=== PATIENT | male | born 1980 | race Caucasian/White ===

== ENCOUNTER → 2020-08-22 11:52 | Outpatient (BNVA) | payer SELFPAY | PROVIDERS: PCP Registered Nurse; Visit Provider Emergency Medicine | DX: D45 Polycythemia vera (principal); M25.569 Pain in unspecified knee | CPT/HCPCS: 80053; 83880; 85025; 85610 ==

== ENCOUNTER 2020-10-07 17:00 | Emergency (ER) | payer SELFPAY ==
[2020-10-07 17:03] VITALS: BP 132/78; PULSE 101; RESP 18; TEMP 36.8; O2SAT 97; BMI 20.7
[2020-10-07 17:10] VITALS: BP 130/83; PULSE 101; O2SAT 97
--- NOTE | 2020-10-07 17:22 | CTR_ITS ---
PROCEDURE INFORMATION: Exam: CT Head Without Contrast Exam date and time: 10/07/2020 5:29 PM Age: 40 years old Clinical indication: Pain; Headache TECHNIQUE: Imaging protocol: Computed tomography of the head without contrast. Total images: 190 Radiation optimization: All CT scans at this facility use at least one of these dose optimization techniques: automated exposure control; mA and/or kV adjustment per patient size (includes targeted exams where dose is matched to clinical indication); or iterative reconstruction. COMPARISON: CT head wo con* [id number] 01/05/2019 12:12 AM RADIATION DOSE METRICS: Total DLP (mGy-cm): 742 FINDINGS: Brain: Normal. No hemorrhage. Unremarkable white matter. No mass effect. Cerebral ventricles: No ventriculomegaly. Bones/joints: Unremarkable. No acute fracture. Paranasal sinuses: Evidence of mild chronic ethmoid sinusitis. No visible evidence of active paranasal sinus disease. Mastoid air cells: Visualized mastoid air cells are well aerated. Soft tissues: Unremarkable. CT/CT head wo con* [id number] IMPRESSION: No evidence of active or acute intracranial pathologic process, hemorrhage, or trauma. Radiation Dose CTDIVOL = (mGy): DLP = 742 (mGy-cm)
--- NOTE | 2020-10-07 17:22 | USCV_ITS ---
[place] Age: 40 Gender: M : 1980 Exam Date: 10/07/2020 18:00 Ordering Phys: Tamika Mancilla Technologist: Yumiko Dwyer [place] [facility] [place] Indication: SWELLING HISTORY: Lower extremity swelling. PROCEDURES: Venous duplex imaging was performed in only the right lower extremity. The following venous structures were evaluated: common femoral vein, profunda vein, proximal portion of the greater saphenous vein, superficial femoral vein, and the popliteal vein. In addition, the posterior tibial and peroneal trunk were evaluated. Serial compression, augmentation maneuvers, and spectral Doppler flow evaluation were performed. FINDINGS: Normal 2-D Doppler and augmentation and compressibility throughout the lower extremity venous structures. Additional imaging through the proximal calf veins also reveals no thrombus. Limited evaluation of the greater saphenous vein is patent with no thrombus.. CONCLUSIONS No evidence of DVT in the above-mentioned identifiable veins. Dr Rush Schafer MD [facility] (Electronically Signed) Final Date: 07 October 2020 19:42 S
--- NOTE | 2020-10-07 17:22 | CTR_ITS ---
PROCEDURE INFORMATION: Exam: CT Angiography Chest With Contrast Exam date and time: 10/07/2020 5:29 PM Age: 40 years old Clinical indication: Patient HX: Sub sternal chest pain x 2 days; Additional info: Cp, ? pe, elevated d-dimer TECHNIQUE: Imaging protocol: Computed tomographic angiography of the chest with contrast. 3D rendering (Not supervised by radiologist): MIP and/or 3D reconstructed images were created by the technologist. Total images: 859 Radiation optimization: All CT scans at this facility use at least one of these dose optimization techniques: automated exposure control; mA and/or kV adjustment per patient size (includes targeted exams where dose is matched to clinical indication); or iterative reconstruction. Contrast material: OMNI 350; Contrast volume: 63 ml; Contrast route: INTRAVENOUS (IV); COMPARISON: CR Chest 1 [place] [id number] 01/04/2019 11:48 PM RADIATION DOSE METRICS: Total DLP (mGy-cm): 545.78 FINDINGS: Pulmonary arteries: No visible evidence of pulmonary embolism/pulmonary arterial thrombus. Aorta: The thoracic aorta is nonaneurysmal. No visible intimal flap or dissection. Lungs: No visible active interstitial or alveolar airspace disease. No visible evidence of significant restrictive or reactive airway disease. Pleural spaces: Unremarkable. No pneumothorax. No pleural effusion. Heart: Unremarkable. No cardiomegaly. No pericardial effusion. Lymph nodes: No visible active mediastinal or hilar lymphadenopathy. Calcified complexes of antecedent granulomatous disease. Liver: Tiny hepatic cyst dome of the right hepatic lobe. Spleen: Tiny splenule. Spleen otherwise unremarkable. Bones/joints: No visible active or acute osseous pathology. Soft tissues: Unremarkable. Soft tissues: Unremarkable. CT/CT angio chest PE protcl [id number] IMPRESSION: No visible evidence of pulmonary embolism/pulmonary arterial thrombus. Radiation Dose CTDIVOL = (mGy): DLP = 545.78 (mGy-cm)
--- NOTE | 2020-10-07 17:22 | USCV_ITS ---
[place] Age: 40 Gender: M : 1980 Exam Date: 10/07/2020 18:04 Ordering Phys: Tamika Mancilla Technologist: Yumiko Dwyer Exam Location: [facility] [place] Indication: SWELLING HISTORY: Upper extremity swelling. PROCEDURES: Venous duplex imaging was performed in only the right upper extremity. The following venous structures were evaluated: internal jugular vein, subclavian vein, axillary vein, and brachial veins. In addition, the basilic vein, cephalic vein, radial vein, and ulnar vein. Serial compression, augmentation maneuvers, and spectral Doppler flow evaluation were performed. FINDINGS: Normal 2-D, color Doppler and phasicity noted in ther right upper extremity venous system extending from the right internal jugular vein through the main forearm. No thrombosis or occlusion noted. The veins were found to be easily compressible with spontaneous blood flow. Non pulsatile flow pattern. CONCLUSIONS No evidence of venous thrombosis, based on the above findings Dr Rush Schafer MD [facility] (Electronically Signed) Final Date: 07 October 2020 19:40 S
--- NOTE | 2020-10-07 17:25 | ECG_ITS ---
[facility] Test Date: 2020-10-07 Pat Name: [place] Department: Room: Gender: Male [employer] Attendant: : 1980 Requested By: Tamika Mccallum Order Number: [id number] Karla MD: Miguel Angel Casey M.D. Measurements Intervals [place] Rate: 89 P: 57 NM: 153 QRS: 40 QRSD: 100 T: 50 QT: 328 QTc: 400 Interpretive Statements SINUS RHYTHM Compared to ECG 01/05/2019 00:00:37 No significant changes Electronically Signed On 10-08-2020 11:07:52 [employer] MANAGER by Miguel Angle Casey M.D. [id number]
--- NOTE | 2020-10-07 17:26 | ED_ITS ---
HPI - General Adult General: Chief complaint: General Medical Stated complaint: suspects blood clot in lung/head Time Seen by Provider: 10/07/20 17:08 Source: patient and family (sister) Mode of arrival: ambulatory Limitations: no limitations History of Present Illness: HPI narrative: Pleasant 40-year-old male patient presents to the emergency department for further evaluation from another facility, [place]. He arrived to [facility] today with complaints of chest pain on and off x2 days, located in the center of his chest. He reports pain comes and goes. He states nothing makes it better nothing makes it worse. He describes pain as dull ache in the center of his chest, he has history of atrial fibrillation and polycythemia remains on aspirin as med ication/anti-coagulation; he does not know names of daily medication; he reports noncompliance and has not followed up with cardiology as recommended by his primary care physician. He also complains of right lower extremity redness and swelling x3 days with new onset of right upper extremity, right arm area of redness that is new today. He reports areas of redness and swelling/tenderness, worse with movement. Also complains of a headache x3 days, occipital, has not taken anything for pain. He denies history of chronic headaches or migraine. is afraid he may have a blood clot in his chest and brain, right leg and right arm as his D-dimer readings were elevated at [place] which is why he was sent here for further evaluation. D-dimer was 0.74. He denies facial weakness, extremity weakness, leg or arm weakness. He denies nausea vomiting diarrhea or radiation of chest pain into the arms or neck. He currently denies chest pain upon exam. States has been pain-free in the chest since leaving [place]. Location: head, chest, upper extremity and lower extremity Radiation: non-radiation Severity: moderate Quality: dull Pain Consistency: intermittent Relieving factors: rest Exacerbating factors: movement Associated symptoms: Reports chest pain, headache(s) and palpitations (history of atrial fibrillation); Deny confusion, diaphoresis, dyspnea, nausea, rash or vomiting Treatments prior to arrival: none Review of Systems General: Reports: 10 or more systems reviewed and unremarkable except in HPI and below Const: Denies: fever(s), chills or diaphoresis Eyes: Denies: change in vision, blurry vision, photophobia, eye discomfort, eye redness or yellow eyes ENMT: Denies: throat pain, hoarseness, mouth pain, dental pain, ear or mastoid pain, disequilibrium, nasal discharge, nasal congestion or post nasal drip Card: Reports: chest pain, palpitations (history of atrial fibrillation) and edema (RLE); Denies: swelling of feet/ankles, lightheadedness, dyspnea on exertion or orthopnea Resp: Denies: dyspnea, productive cough, non-productive cough, wheezing or chest congestion GI: Denies: abdominal pain, nausea, vomiting, hematemesis, diarrhea, constipation, GI cramping, change in stool character or melena : Denies: dysuria Musc: Reports: extremity pain (RLE and RUE) and extremity swelling (RLE); Denies: neck pain, back pain, muscle cramps or muscle weakness Skin/Breast: Denies: rash or pruritus Neuro: Reports: headache(s); Denies: numbness in extremities, weakness in extremities, sensory changes, difficulty walking, frequent falls, confusion, behavioral changes, Slurred speech present, difficulty communicating thoughts or seizure-like activity Psych: Denies: anxiety, depression, hopelessness or irritability Adrián/Lymph: Denies: easy bruising PFS ED PFSH: Medical History (Updated 10/07/20 @ 19:16 by LYDIA Argueta) Atrial fibrillation CVA (cerebral vascular accident) Polycythemia vera Social History Smoking and tobacco status: current every day smoker Alcohol intake: never Physical Exam Const: COMMON NORMALS: no acute distress, patient oriented x3, healthy appearing, alert and well nourished EXAM LIMITATIONS: no altered mental status and no physical limitations GENERAL APPEARANCE: cooperative, comfortable, well kempt, well developed and well hydrated; not anxious, not combative, not lethargic and not ill appearing NUTRITIONAL APPEARANCE: thin ORIENTATION/CONSCIOUSNESS: Yes awake, Yes oriented to person, Yes oriented to place and Yes oriented to time; not lethargic HENMT: COMMON NORMALS: normocephalic, atraumatic, EAC's normal, Normal external nose present and moist oral mucous membranes HEAD & SCALP: normal to inspection, normocephalic, atraumatic and scalp tenderness (Occipital) FACE & SINUS: normal facial exam, sinuses nontender and face symmetric NOSE: Normal external nose present and Normal nares present EXTERNAL AUDITORY CANAL: EAC's normal MOUTH: Normal oral and palatal mucosa present, lip normal and tongue normal THROAT: posterior oropharynx normal and uvula midline Eye: COMMON NORMALS: Equal, round and reactive pupils present, EOMs intact bilaterally and conjunctivae normal GENERAL EYE: appearance normal, both eyes and all related structures and normal light reflex ALIGNMENT: Yes alignment normal EYELID: eyelids normal CONJUNCTIVA: Yes conjunctivae normal SCLERA: sclerae normal PUPIL: Yes Equal, round and reactive pupils present, Yes pupil size - right Right pupil size (mm): 4 and Yes pupil size - left Left pupil size (mm): 4 DIRECT OPHTHALMOSCOPY: Yes normal light reflex Neck/C-Spine: COMMON NORMALS: full ROM, no lymphadenopathy, supple, no meningeal signs and no JVD GENERAL: Yes normal visual inspection and Yes trachea midline CERVICAL SPINE: Yes cervical ROM normal, No Cervical spine tenderness, No Paracervical muscle tenderness and No Trapezius muscle tenderness Lymph: LYMPHATIC: no lymphadenopathy noted Chest: COMMONS NORMALS: normal inspection of the chest and normal palpation of entire chest wall CHEST: No localized rib tenderness with anteroposterior compression Resp: COMMON NORMALS: normal respiratory effort, No retractions, No use of accessory muscles and clear to auscultation bilaterally EFFORT & INSPECTION: Yes able to speak in complete sentences, No labored, No Actively coughing, No retractions and No audible wheezes AUSCULTATION: clear to auscultation bilaterally Cardio: COMMON NORMALS: no JVD, regular rate, regular rhythm, S1 normal heart sound present, S2 normal heart sound present and Peripheral pulses 2+ throughout PALPATION: normal PMI RATE: regular rate RHYTHM: regular rhythm HEART SOUNDS: S1 normal heart sound present and S2 normal heart sound present PERIPHERAL PULSES: Peripheral pulses 2+ throughout GI: COMMON NORMALS: Normal to inspection, nondistended, normoactive bowel sounds present, Soft to palpation and non-tender INSPECTION: Yes normal to inspection, No abdominal wall ecchymosis, No Anasarca and No central obesity PALPATION: Yes Soft to palpation : COMMON NORMALS: Yes no CVA tenderness BLADDER/KIDNEY EXAM: Yes no CVA tenderness Back/Pelvis: COMMON NORMALS: no CVA tenderness and thoracic and lumbar spine normal to inspection THORACIC SPINE/UPPER BACK: Yes thoracic ROM normal LUMBAR SPINE/LOWER BACK: Yes lumbar ROM normal Extremity: COMMON NORMALS: full ROM, capillary refill normal, no clubbing, cyanosis or edema and no pedal edema GENERAL: Yes normal exam except as noted OTHER: RLE with calf tenderness and slight erythema; RUE with area of erythema lower arm, dorsal with tenderness Neuro: HAYLEY COMA SCALE: document GCS findings Mcintosh coma scale eye opening: Spontaneous Hayley coma scale verbal response: Orientated Mcintosh coma scale motor response: Obey commands Hayley coma scale total score: 15 COMMON NORMALS: patient oriented x3, moves all extremities and no focal motor deficits SENSORIUM/ORIENTATION: Yes alert, Yes oriented to person, Yes oriented to place, Yes oriented to time, No Orientation impaired and No lethargic MENINGEAL SIGNS: Yes no meningeal signs, No nuccal rigidity, No Brudzinski's sign present and No Kernig's sign presnet CRANIAL NERVES: Yes CN normal except as noted and Yes pupillary reactivity/size COORDINATION/BALANCE: [id number] test normal and [id number]-al-[id number] test normal SPEECH: speech normal GAIT: Yes Normal gait present SENSORY EXAM: Yes Normal double simultaneous stimulation for sensation MOTOR EXAM: 5/5 motor strength present throughout, Pronator motor function not present, no tremor noted, Normal motor muscle tone present throughout and Motor abnormalities not present COORDINATION: fin corinne-to-nose test normal and [id number] test normal PUPIL EXAM: Normal pupillary reactivity/response: right and left Right pupil size (mm): 4 Left pupil size (mm): 4 Psych: COMMON NORMALS: mental status grossly normal, Normal thought process present and cooperative APPEARANCE: Yes well kempt ACTIVITY/MOTOR BEHAVIOR: Yes appropriate eye contact THOUGHT PROCESS: Normal thought process present Skin: COMMON NORMALS: turgor normal, no jaundice, no petechiae and no mottling GENERAL SKIN EXAM: turgor normal LESIONS: lesion noted (Early abscess left lateral neck, papule, 8 mm x 8 mm with slight induration) HAIR: normal NAILS: normal Course Vital Signs: Vital signs: Vital Signs Temperature 98.2 F 10/07/20 17:03 Pulse Rate 82 10/07/20 19:38 Respiratory Rate 16 10/07/20 19:38 Blood Pressure 115/80 10/07/20 19:38 Pulse Oximetry 97 10/07/20 19:38 MDM - General Adult MDM Narrative: Medical decision making narrative: 40-year-old male patient presents to the emergency department for further evaluation studies for possible DVT of the right upper and lower extremities due to redness and swelling. He is a transfer from [facility] in [place], D-dimer was noted to be slightly elevated, 0.74. Due to his complaint of chest pain x3 days with history of atrial fibrillation and polycythemia, ECG and CTA PE protocol chest completed. ECG did not reveal S1 Q3 T3 or ST elevation variances, was with normal reading. CTA PE chest protocol did not reveal occlusion or PE/infectious process. NIH scale 0. CTA of the brain not completed due to negative findings of right upper and lower extremity venous Doppler and CTA PE protocol chest. Tylenol was administered as he complained of headache, CT of the head without contrast was negative for stroke or ischemia. Tylenol effective resolving headache. Findings of the redness to the upper and lower extremities on the right sugge stive of cellulitis and skin thickening was present over the areas. We will treat for cellulitis and recommend follow-up with his primary care provider. Continue aspirin and other daily medication recommended. Troponin was also noted to be 6, negative for elevation. Patient reports no history of MRSA, findings of left papule possible early abscess, was placed on Bactrim. Consult to secondary social studies teacher to assist with scheduling patient follow-up appointment with his primary care provider next week for follow-up. He denies further chest pain here in the ED at the end of his exam. Lab Data: Labs: Lab Results 10/07/20 10/07/20 Range/Units 17:15 17:15 PT 12.40 (12.1-14.9) SECO NDS INR 0.90 (0.8-1.2) APTT 33.1 (23.9-36.7) SECO NDS Troponin T Gen 5 n g/L 6 (0-15) ng/L Imaging Data^: CT Head: Radiologist's impression: [address] [address] [address] Scan Report Signed Patient: [place] #: [id number] : 1980Acct#:[id number] Age/Sex: 40 / MADM Date: 10/07/20 Loc: ERRoom/Bed: Attending Dr: Ordering Provider/Ordering MD: Tamika Mancilla Date of Service: 10/07/20 Procedure(s): CT head wo con* [id number] Accession Number(s): [id number] Report Number: [id number] PROCEDURE INFORMATION: Exam: CT Head Without Contrast Exam date and time: 10/07/2020 5:29 PM Age: 40 years old Clinical indication: Pain; Headache TECHNIQUE: Imaging protocol: Computed tomography of the head without contrast. Total images: 190 Radiation optimization: All CT scans at this facility use at least one of these dose optimization techniques: automated exposure control; mA and/or kV adjustment per patient size (includes targeted exams where dose is matched to clinical indication); or iterative reconstruction. COMPARISON: CT head wo con* [id number] 01/05/2019 12:12 AM RADIATION DOSE METRICS: Total DLP (mGy-cm): 742 FINDINGS: Brain: Normal. No hemorrhage. Unremarkable white matter. No mass effect. Cerebral ventricles: No ventriculomegaly. Bones/joints: Unremarkable. No acute fracture. Paranasal sinuses: Evidence of mild chronic ethmoid sinusitis. No visible evidence of active paranasal sinus disease. Mastoid air cells: Visualized mastoid air cells are well aerated. Soft tissues: Unremarkable. CT/CT head wo con* [id number] IMPRESSION: No evidence of active or acute intracranial pathologic process, hemorrhage, or trauma. Radiation Dose CTDIVOL = (mGy): DLP = 742 (mGy-cm) Dictated By:Xavi Baum Signed By:Jeremy Baum Date/Time:10/07/201807 DD/ [address]: Radiologist's impression: [facility] [address] [place] [address] CT Scan Report Signed Patient: [place] Unit #: [id number] : 1980 Age/Sex: 40 / M ADM Date: 10/07/20 Loc: ER Room/Bed: Attending Dr: Ordering Provider/Ordering MD: Tamika Mancilla Date of Service: 10/07/20 Procedure(s): CT angio chest PE protcl [id number] Accession Number(s): [id number] Report Number: [id number] PROCEDURE INFORMATION: Exam: CT Angiography Chest With Contrast Exam date and time: 10/07/2020 5:29 PM Age: 40 years old Clinical indication: Patient HX: Sub sternal chest pain x 2 days; Additional info: Cp, ? pe, elevated d-dimer TECHNIQUE: Imaging protocol: Computed tomographic angiography of the chest with contrast. 3D rendering (Not supervised by radiologist): MIP and/or 3D reconstructed images were created by the technologist. Total images: 859 Radiation optimization: All CT scans at this facility use at least one of these dose optimization techniques: automated exposure control; mA and/or kV adjustment per patient size (includes targeted exams where dose is matched to clinical indication); or iterative reconstruction. Contrast material: OMNI 350; Contrast volume: 63 ml; Contrast route: INTRAVENOUS (IV); COMPARISON: CR Chest 1 [place] [id number] 01/04/2019 11:48 PM RADIATION DOSE METRICS: Total DLP (mGy-cm): 545.78 FINDINGS: Pulmonary arteries: No visible evidence of pulmonary embolism/pulmonary arterial thrombus. Aorta: The thoracic aorta is nonaneurysmal. No visible intimal flap or dissection. Lungs: No visible active interstitial or alveolar airspace disease. No visible evidence of significant restrictive or reactive airway disease. Pleural spaces: Unremarkable. No pneumothorax. No pleural effusion. Heart: Unremarkable. No cardiomegaly. No pericardial effusion. Lymph nodes: No visible active mediastinal or hilar lymphadenopathy. Calcified complexes of antecedent granulomatous disease. Liver: Tiny hepatic cyst dome of the right hepatic lobe. Spleen: Tiny splenule. Spleen otherwise unremarkable. Bones/joints: No visible active or acute osseous pathology. Soft tissues: Unremarkable. Soft tissues: Unremarkable. CT/CT angio chest PE protcl [id number] IMPRESSION: No visible evidence of pulmonary embolism/pulmonary arterial thrombus. Radiation Dose CTDIVOL = (mGy): DLP = 545.78 (mGy-cm) Dictated By: Xavi Baum Signed By: Xavi Baum Signed Date/Time: 10/07/201816 DD/ 14 US: Radiologist's impression: Duplex venous Doppler right lower extremity and right upper extremity without DVT or occlusion. EKG Data^: EKG 1: EKG interpretation date: 10/07/20 EKG interpretation time: 17:44 Prior EKG tracings: not available for review Computer generated interpretation: Chest CTA 10/07/20 17:22 IMPRESSION: No visible evidence of pulmonary embolism/pulmonary arterial thrombus. Radiation Dose CTDIVOL = (mGy): DLP = 545.78 (mGy-cm) Head CT 10/07/20 17:22 IMPRESSION: No evidence of active or acute intracranial pathologic process, hemorrhage, or trauma. Radiation Dose CTDIVOL = (mGy): DLP = 742 (mGy-cm) Other EKG comments: Ventricular rate 89; sinus rhythm, normal ECG Discharge Plan Discharge Patient Disposition: Home Clinical Impression: Headache Qualifiers: Headache type: unspecified Headache chronicity pattern: unspecified pattern Intractability: intractable Qualified Code(s): R51.9 - Headache, unspecified Cellulitis Qualifiers: Site of cellulitis: extremity Site of cellulitis of extremity: lower extremity Laterality: right Qualified Code(s): L03.115 - Cellulitis of right lower limb Chest pain Qualifiers: Chest pain type: other chest pain Qualified Code(s): R07.89 - Other chest pain Condition: Stable Prescriptions: New Bactrim DS 800-160 mg tablet 1 tab PO BID 20 Days Qty: 40 RF: 0 No Action aspirin [Adult Aspirin Regimen] 81 mg tablet,delayed release (DR/EC) 81 mg PO DAILY Qty: 30 RF: 4 hydroxyurea 500 mg capsule 500 mg PO DAILY Qty: 30 RF: 3 Discharge Orders: Discharge ED (Routine); Ordered 10/07/20 Ordered By: Tamika Mancilla Referrals: Mirta Ignacio FNP [Primary Care Provider] - Discharge Diet: Usual diet Discharge Activity: Resume usual activity Patient Instructions: Chest Pain (ED), Methicillin Resistant Staphylococcus Aureus (ED), Cellulitis (ED), Acute Headache (ED) Activity Restrictions/Additional Instructions: Take Bactrim until all gone, even if feeling better Return to the emergency department if you develop worsening symptoms such as shortness of breath, the worst headache of your life or other concerning symptoms Drink lots of water to remain hydrated Case management will contact you with a follow-up appointment with Dr. Carbajal for next week. Continue current medications Coding Level of Care Code ED Learning Disabilities Specialist for Chg Fwd Exam Comprehensive
[2020-10-07] MEDS: acetaminophen 500 mg Tablet 1000 MG PO (17:39)
[2020-10-07 17:52] LABS: Partial Thromboplastin Time 33.1 SECONDS (23.9-36.7)
[2020-10-07] MEDS: iohexol 350 mg/mL 100 mL Btl IV (17:54)
[2020-10-07 18:27] VITALS: BP 111/70; PULSE 89; O2SAT 96
[2020-10-07 18:40] LABS: Troponin T (5th) Once 6 ng/L (0-15)
[2020-10-07 19:18] VITALS: BP 103/88; PULSE 88; O2SAT 96
[2020-10-07 19:38] VITALS: BP 115/80; PULSE 82; RESP 16; O2SAT 97
--- NOTE | 2020-10-11 12:23 | DCPLANNER ---
manager human resources received message to schedule follow up appointment with Dr. Adan. manager human resources called patient and patient stated that he has already had his follow up appointment with Dr. Adan. Patient stated the appointment was yesterday.
== END 2020-10-07 19:40 | disposition home or self-care (01) ==
PROVIDERS: Emergency Provider Nurse Practitioner Family; PCP Registered Nurse
DX: R07.89 Other chest pain (principal); R51.9 Headache, unspecified; L03.115 Cellulitis of right lower limb; Z79.82 Long term (current) use of aspirin; I48.91 Unspecified atrial fibrillation; Z86.73 Personal history of transient ischemic attack (TIA), and cerebral infarction without residual deficits; F17.210 Nicotine dependence, cigarettes, uncomplicated
CPT/HCPCS: 12345; 70450; 71275; 84484; 85610; 85730; 87070; 87075; 87205; 93005; 93971; 99283; 99284; Q9967

== ENCOUNTER 2022-07-28 13:09 | Emergency (ER) | payer SELFPAY ==
[2022-07-28 13:26] VITALS: BP 128/67; PULSE 115; RESP 18; TEMP 38.3; O2SAT 94
--- NOTE | 2022-07-28 13:49 | XRR_ITS ---
PROCEDURE INFORMATION: Exam: XR Chest Exam date and time: 07/28/2022 3:10 PM Age: 42 years old Clinical indication: Cough and dyspnea; Additional info: Dyspnea/cough TECHNIQUE: Imaging protocol: Radiologic exam of the chest. Views: 1 view. COMPARISON: CT angio chest PE prot [id number] 10/07/2020 5:45 PM FINDINGS: Lungs: Unremarkable. No consolidation. Pleural spaces: Unremarkable. No pleural effusion. No pneumothorax. Heart/Mediastinum: Unremarkable. No cardiomegaly. Bones/joints: Unremarkable. XR/XR chest 1V portable [id number] IMPRESSION: No acute findings.
--- NOTE | 2022-07-28 13:56 | W.ED.GENADLT ---
HPI - General Adult General: Chief complaint: General Medical Stated complaint: R leg issue Time Seen by Provider: 07/28/22 13:48 Source: patient Mode of arrival: ambulatory History of Present Illness: 42-year-old male presents to the emergency room complaining of generally not feeling well. He has a low-grade fever some tachycardia initially started with diarrhea that resolved he has a lot of myalgias rhinorrhea and some mild sore throat. He reports a rash on his right leg that is very sparse that has been present intermittently for the last 2 months. No vesicular vesicles no drainage no significant erythema no fevers sweats or chills prior to the onset of the diarrhea and myalgias here recently. He is concerned that this is all associated with the rash. Onset (ago): day(s) Severity: moderate Pain Consistency: constant Relieving factors: none Exacerbating factors: none Associated symptoms: Reports cough, decreased appetite, dyspnea, fevers/chills, headache(s), malaise, nausea, rash and short of breath; Deny chest pain, confusion, diaphoresis, palpitations, seizures, syncope or weakness Treatments prior to arrival: none Review of Systems Const: Reports: fever(s), chills, body aches, fatigue and malaise; Denies: diaphoresis ENMT: Denies: throat pain, ear or mastoid pain, nasal discharge or nasal congestion Card: Denies: chest pain, palpitations or syncope Resp: Reports: dyspnea GI: Reports: nausea and diarrhea; Denies: abdominal pain : Denies: flank pain, dysuria, urinary frequency or urinary urgency Musc: Denies: neck pain, back pain, extremity pain or extremity swelling Skin/Breast: Reports: rash Neuro: Reports: headache(s); Denies: confusion [facility] ED PFSH: Medical History Atrial fibrillation CVA (cerebral vascular accident) Polycythemia vera Social History Smoking and tobacco status: current every day smoker Alcohol intake: never Physical Exam Const: COMMON NORMALS: no acute distress GENERAL APPEARANCE: cooperative and comfortable ORIENTATION/CONSCIOUSNESS: Yes awake, Yes oriented to person, Yes oriented to place and Yes oriented to time HENMT: COMMON NORMALS: normocephalic, atraumatic, hearing grossly normal bilaterally, external ears normal, EAC's normal, TM's normal bilaterally, Normal nasal mucous membranes and turbinates present, moist oral mucous membranes and oropharynx normal HEAD & SCALP: normocephalic and atraumatic NOSE: Normal nasal mucous membranes and turbinates present EXTERNAL EAR: Yes external ears normal EXTERNAL AUDITORY CANAL: EAC's normal TYMPANIC MEMBRANE: TM's normal bilaterally Eye: COMMON NORMALS: Equal, round and reactive pupils present, EOMs intact bilaterally, conjunctivae normal and no scleral icterus CONJUNCTIVA: Yes conjunctivae normal PUPIL: Yes Equal, round and reactive pupils present Neck/C-Spine: COMMON NORMALS: full ROM, no lymphadenopathy, supple and no JVD Lymph: LYMPHATIC: no lymphadenopathy noted and no lymphedema noted Resp: COMMON NORMALS: normal respiratory effort, No retractions, No use of accessory muscles and clear to auscultation bilaterally AUSCULTATION: clear to auscultation bilaterally Cardio: COMMON NORMALS: no JVD, regular rate, regular rhythm and No murmurs present (Cardio) RATE: regular rate RHYTHM: regular rhythm GI: COMMON NORMALS: Soft to palpation and No hepatosplenomegaly present AUSCULTATION: Yes normoactive bowel sounds PALPATION: Yes Soft to palpation, No Tenderness to palpation present (GI), No Guarding due to palpation present (GI) and Yes No hepatosplenomegaly present Extremity: COMMON NORMALS: normal to inspection, capillary refill normal, no clubbing, cyanosis or edema, no calf tenderness and no pedal edema Neuro: SENSORIUM/ORIENTATION: Yes oriented to person, Yes oriented to place and Yes oriented to time Skin: OTHER: Sparse rash on the right leg few small almost isolated areas of redness appears to almost be more of a folliculitis there is no vesicles no palpable nodules. Course Vital Signs: Vital signs: Vital Signs Temperature 100.9 F H 07/28/22 13:26 Pulse Rate 115 H 07/28/22 13:26 Respiratory Rate 18 07/28/22 13:26 Blood Pressure 128/67 07/28/22 13:26 Pulse Oximetry 94 07/28/22 13:26 Oxygen Delivery Me thod 07/28/22 13:26 MDM - General Adult Medical Decision Making Rash is very mild I think it is really a secondary issue refer back to his primary care provider letting see dermatology if it does not begin to improve. Suspect he has a viral upper respiratory infection more likely to be COVID possibly influenza were waiting on the results we will discharge patient home contact when results become available. Medical Records I reviewed the patient's medical records. Lab Data I reviewed the patient's lab results. Radiology Impressions Chest X-Ray 07/28/22 13:49 IMPRESSION: No acute findings. Venous Duplex 07/28/22 14:06 IMPRESSION: No evidence of deep vein thrombosis. Laboratory Results Coronavirus 229E (PCR) Not detected (NOT DETECT) 07/28/22 14:13 SARS-CoV-2 (PCR) Detected (NOT DETECT) A 07/28/22 14:13 Discharge Plan Discharge Patient Disposition: Home Clinical Impression: Viral URI, Polycythemia vera, Leg pain, right Condition: Stable Prescriptions: No Action aspirin [Adult Aspirin Regimen] 81 mg tablet,delayed release (DR/EC) 81 mg PO DAILY Qty: 30 4RF hydroxyurea 500 mg capsule 500 mg PO DAILY Qty: 30 3RF Discharge Orders: Discharge ED (Routine); Ordered 07/28/22 Ordered By: Abel Villa Referrals: Rudolph Zurita [Primary Care Provider] - Discharge Diet: Usual diet Discharge Activity: Increase activity as tolerated Patient Instructions: Opioid Safety, Pain Management Activity Restrictions/Additional Instructions: You were seen with symptoms of viral upper respiratory infection in the emergency room. Suspect you have influenza. You are tested for COVID if the COVID is negative most likely you have influenza we will contact you with the results of the testing. As to the rash on your leg if it persist follow-up with your primary care doctor at the venous duplex of your leg did not show any blood clot. Coding Level of Care Code ED Brick Setter for Verónica Krishna
--- NOTE | 2022-07-28 14:06 | USR_ITS ---
PROCEDURE INFORMATION: Exam: US Duplex Right Lower Extremity Veins, Limited Exam date and time: 07/28/2022 2:14 PM Age: 42 years old Clinical indication: Pain; Leg, lower; Right; Additional info: Leg pain TECHNIQUE: Imaging protocol: Real-time Duplex ultrasound of the Right Lower Extremity with 2-D queen scale, color Doppler flow and spectral waveform analysis with image documentation. Limited exam was focused on the right lower extremity veins. COMPARISON: No relevant prior studies available. FINDINGS: Right deep veins: Unremarkable. The common femoral, femoral, proximal profunda femoral and popliteal veins are patent without thrombus. Normal Doppler waveforms. Normal compressibility and/or augmentation response. Right superficial veins: Unremarkable. Saphenofemoral junction is patent without thrombus. Soft tissues: Unremarkable. US/[place] [id number] IMPRESSION: No evidence of deep vein thrombosis.
[2022-07-28 17:14] LABS: Adenovirus Not Detected (NOT DETECT); Chlamydia Pneumoniae Not Detected (NOT DETECT); Coronavirus 229E,HKU1,NL63,OC4 Not Detected (NOT DETECT); Human Metapneumovirus Not Detected (NOT DETECT); Human Rhinovirus/Enterovirus Not Detected (NOT DETECT); Influenza A Not Detected (NOT DETECT); Influenza A H1 Not Detected (NOT DETECT); Influenza A H1-2009 Not Detected (NOT DETECT); Influenza A H3 Not Detected (NOT DETECT); Influenza B Not Detected (NOT DETECT); Mycoplasma Pneumoniae Not Detected (NOT DETECT); Parainfluenza Virus Type 1 Not Detected (NOT DETECT); Parainfluenza Virus Type 2 Not Detected (NOT DETECT); Parainfluenza Virus Type 3 Not Detected (NOT DETECT); Parainfluenza Virus Type 4 Not Detected (NOT DETECT); Respiratory Syncytial Virus A Not Detected (NOT DETECT); Respiratory Syncytial Virus B Not Detected (NOT DETECT); SARS-COV-2 Detected (NOT DETECT)
--- NOTE | 2022-07-29 08:25 | PC.NURSE ---
PT NOTIFIED OF POSITIVE COVID RESULT VIA TELEPHONE
== END 2022-07-28 15:03 | disposition home or self-care (01) ==
PROVIDERS: Emergency Provider Family Medicine; PCP Family Medicine
DX: J06.9 Acute upper respiratory infection, unspecified (principal); D45 Polycythemia vera; M79.604 Pain in right leg
CPT/HCPCS: 71045; 87635; 93971; 99284

== ENCOUNTER 2024-10-05 14:13 | Outpatient (CLI) | payer OTHER, SELFPAY ==
--- NOTE | 2024-10-05 14:30 | MR_ITS ---
WS: [id number] MRI LUMBAR SPINE NONCONTRAST TECHNIQUE: Sagittal T1, T2 and STIR imaging. Axial T1 and T2 imaging. CLINICAL INFORMATION: BACK INJURY, INITIAL ENCOUNTER COMPARISON: None. FINDINGS: Mild lumbar curve. No acute compression. No high-grade central canal stenosis. Counting performed fro m the craniocervical junction. S1 is partially lumbarized. Recommend plain film correlation prior to surgical intervention. L1-L2: Normal. L2-L3: Mild annular bulging. Mild facet arthropathy. Spinal canal and foramen are patent. L3-L4: Minimal annular bulging. Mild facet arthropathy. Tiny RIGHT foraminal protrusion with mild RIG HT foraminal narrowing. LEFT foramen is patent. Mild facet arthropathy. L4-L5: Mild annular bulging. Mild facet arthropathy. Spinal canal and foramen are patent. L5-S1: Mild annular bulging. Moderate facet arthropathy small RIGHT greater than LEFT facet effusions .. Tiny LEFT foraminal protrusion with mild LEFT foraminal narrowing. S1-S2: S1 is partially lumbarized. Spinal canal and foramen are patent. Visualized pelvic bony structures: Normal. Paravertebral soft tissues: Normal. Small RIGHT renal cyst measuring 11 mm. MR/MR lumbar spine wo con* [id number] IMPRESSION: 1. Mild lumbar curve. No acute compression. No high-grade central canal stenos is. 2. S1 is partially lumbarized. 3. Tiny RIGHT foraminal protrusion L3-4 with mild RIGHT foraminal narrowing. 4. Tiny LEFT foraminal protrusion L5-S1 with slight encroachment on the exitin g LEFT L5 nerve root. 5. Moderate facet arthropathy L5-S1 with small RIGHT greater than LEFT facet e ffusions.
== END 2024-10-05 14:14 | disposition home or self-care (01) ==
PROVIDERS: PCP Family Medicine; Visit Provider Nurse Practitioner Family
DX: S39.92XA Unspecified injury of lower back, initial encounter (principal); M54.17 Radiculopathy, lumbosacral region; X58.XXXA Exposure to other specified factors, initial encounter; M43.8X6 Other specified deforming dorsopathies, lumbar region; R93.7 Abnormal findings on diagnostic imaging of other parts of musculoskeletal system; M48.061 Spinal stenosis, lumbar region without neurogenic claudication; M47.897 Other spondylosis, lumbosacral region; M25.48 Effusion, other site; M51.360 Other intervertebral disc degeneration, lumbar region with discogenic back pain only; M47.896 Other spondylosis, lumbar region; M51.370 Other intervertebral disc degeneration, lumbosacral region with discogenic back pain only; M48.07 Spinal stenosis, lumbosacral region; N28.1 Cyst of kidney, acquired
CPT/HCPCS: 72148